=== PATIENT | female | born 1975 | race Caucasian/White ===

== ENCOUNTER 2023-04-12 23:28 | Observation (INO) | payer BC, SELFPAY ==
--- NOTE | ~2023-04-12 | MR_ITS ---
EXAMINATION: MR brain/brain stem wo/w con DATE: 04/13/2023 11:02 INDICATION: Seizure TECHNIQUE: Magnetic resonance imaging (MRI) of the brain and brainstem was performed without and with 14 mL Multihance intravenous contrast. Sequences included sagittal and axial T1-weighted SE, axial d iffusion-weighted FS SE, axial 3D SWAN, axial T2-weighted FLAIR Propeller, axial T2-weighted Propelle r, coronal T2-weighted FLAIR, and coronal T1-weighted 3D FSPGR. Postcontrast axial T1-weighted SE was obtained. Apparent diffusion coefficient (ADC) maps were created. COMPARISON: Head CT dated 04/13/2023 FINDINGS: There are no areas of restricted diffusion to suggest acute infarction. No intracranial hemorrhage or abnormal intracranial mass lesion. There are no intraparenchymal signal abnormalities seen on the ot her pulse sequences. The ventricles are symmetric and normal in size. The hippocampi are normal and s ymmetric. No irwin matter heterotopias or other neuronal migrational abnormalities. There are no abnor mal extra-axial fluid collections. Flow voids are seen in the cerebral arteries on the T2-weighted se quences consistent with their expected patency. Visualized orbits and soft tissues are unremarkable. There are no areas of abnormal enhancement on the post contrast images. IMPRESSION: 1. Normal brain MRI. Reviewed, dictated and finalized at location A. [employer] IMPRESSION: 1. Normal brain MRI.
--- NOTE | ~2023-04-12 | CT_ITS ---
Non-contrast Head CT History: Seizure Technique: Axial non-contrast imaging of the brain was performed. Dose reduction technique was used on this scan by utilizing automated exposure control and iterative reconstruction technique. The dose -length product (DLP) was 983.67 mGy-cm. Findings: There is no evidence of intracranial hemorrhage, mass lesion, or acute infarct. Brain par enchyma appears normal. The ventricles and subarachnoid spaces are normal in size. The calvarium ap pears normal. The visualized paranasal sinuses and mastoid air cells are clear. Impression: No significant abnormality seen. Reviewed, dictated and finalized at location . [employer]IST Impression: No significant abnormality seen.
[2023-04-12 23:29] VITALS: BP 142/88; PULSE 97; RESP 20; TEMP 36.9; O2SAT 99
[2023-04-12 23:38] VITALS: PULSE 95; O2SAT 100
[2023-04-12 23:46] VITALS: BP 131/76; PULSE 102; RESP 18; TEMP 36.8; O2SAT 98
--- NOTE | 2023-04-12 23:46 | ECG_ITS ---
Measurements Intervals Rose Rate: 97 P: 42 DE: 146 QRS: 14 QRSD: 107 T: 29 QT: 361 QTc: 461 Interpretive Statements SINUS RHYTHM POSSIBLE LEFT ATRIAL ENLARGEMENT [-0.1mV P-WAVE IN V1/V2] NO PREVIOUS ECG AVAILABLE FOR COMPARISON Electronically Signed On 04-13-2023 15:22:27 POTLINE MONITOR by Miah Domínguez M.D.
[2023-04-13] VITALS (14 sets, daily range): BP systolic 117–144; BP diastolic 69–92; PULSE 78–122; RESP 16–22; TEMP 36.4–36.9; O2SAT 97–100
[2023-04-13 00:10] LABS: Eosinophils Absolute Auto 0.1 K/mm3 (0-0.3); Eosinophils Percent Auto 1.2 % (0-4.4); Hematocrit 38.2 % (37.0-47.0); Hemoglobin 12.9 g/dL (12.0-15.0); Immature Granulocyte Absolute 0.03 K/mm3 (0.00-0.031); Immature Granulocyte Percent A 0.7 % (0-0.5); Immature Platelet Fraction Pct 3.9 % (0.9-11.2); Lymphocytes Absolute Auto 0.72 K/mm3 (0.9-3.2); Lymphocytes Percent Auto 17.1 % (18.3-44.2); Mean Corpuscular HGB Conc 33.8 g/dl (32-36); Mean Corpuscular Hemoglobin 34.1 pg (26-34); Mean Corpuscular Volume 101.1 fl (80-100); Mean Platelet Volume 9.7 fl (7.4-10.4); Monocytes Absolute Auto 0.4 K/mm3 (0.1-0.6); Neutrophils Absolute Auto 2.9 K/mm3 (1.3-6.7); Platelet Count Result 109 k/mm3 (150-375); Red Blood Count 3.78 M/mm3 (4.2-5.4); Red Cell Distribution Width 12.5 % (11.5-14.5); White Blood Count 4.2 K/mm3 (4.5-10.0)
[2023-04-13 00:21] LABS: Alanine Aminotransferase 127 U/L (6-35); Albumin Level 4.8 g/dL (3.5-5.1); Alkaline Phosphatase 52 U/L (38-126); Anion Gap 8 mmol/L (8-16); Aspartate Amino Transferase 123 U/L (14-36); Blood Urea Nitrogen 16 mg/dL (7-17); Calcium 9.5 mg/dL (8.4-10.2); Carbon Dioxide 27 mmol/L (22-30); Chloride 96 mmol/L (98-107); Estimated CRCL calculation 130 ml/min; Estimated Glomerular Filt Rate > 60; Glucose 128 mg/dL (65-110); Potassium 3.7 mmol/L (3.4-5.0); Sodium 131 mmol/L (137-145)
--- NOTE | 2023-04-13 00:32 | ED.GENADULT ---
HPI - General Adult General Chief complaint: Seizure Stated complaint: NEW ONSET SZ Time Seen by Provider: 04/13/23 00:31 History of Present Illness HPI narrative: 47-year-old female presented to the emergency department for evaluation for seizure-like activity. Patient was at work when she fell to the ground and had seizure-like activity. Patient was transported to the emergency department by EMS. While in the emergency department patient had a 2nd seizure. Related Data Home Medications Medication Instructions Recorded Confirmed alprazolam 0.25 mg tablet 0.25 mg PO Q8H PRN Anxiety 04/13/23 04/13/23 escitalopram oxalate 10 mg tablet 10 mg PO DAILY 04/13/23 04/13/23 metoprolol tartrate 50 mg tablet 50 mg PO HS 04/13/23 04/13/23 metoprolol tartrate 75 mg tablet 75 mg PO QAM 04/13/23 04/13/23 omeprazole 40 mg capsule,delayed 40 mg PO DAILY 04/13/23 04/13/23 release trazodone 100 mg tablet 100 mg PO HS 04/13/23 04/13/23 Allergies Allergy/AdvReac Type Severity Reaction Status Date / Time No Known Allergies Allergy Verified 04/12/23 23:39 Review of Systems Review of Systems: All systems reviewed & are unremarkable except as noted in HPI and below PMFSH Family History Family History (Updated 04/13/23 @ 04:09 by Vita Macdonald RN) Mother Acute myocardial infarction Father Diabetes mellitus Hypertension Daughter Migraine Social History Social History Smoking packs per day: 0.5 Smoking cigarettes per day: 10.0 Smoking status: Current every day smoker Tobacco type: cigarettes Alcohol intake: never Substance use: never Do You Feel Safe in your Home?: Yes Lack of Transportation: No Lack of Food: Never True Current Housing: I Have Housing Concerned About Future Housing: No Difficulty Paying Gas/Electric Bills: No Difficulty Paying for Meds: No Currently Unemployed: No Education: High School Diploma/GED Difficulty w/ Childcare or Family Care: No Spiritual care concerns: No Exam Narrative: APPEARANCE: Well appearing, no pain, no distress, well-nourished. HEAD: normocephalic, atraumatic. EYES: PERRLA/EOMI, conjunctivae clear. NOSE: Normal no drainage EARS:TMS clear with good light reflex. THROAT: Pharynx clear, no exudate. NECK: Supple. No adenopathy, no masses. RESPIRATORY: Airway patent, respirations nonlabored. Clear to auscultation bilaterally, no rales, rhonchi, wheezing. CARDIOVASCULAR: Regular rate and rhythm without murmurs rubs or gallops. ABDOMINAL: Soft, nontender, nondistended, normal bowel sounds MUSCULOSKELETAL: Moves all extremities. Strength/ROM intact, No edema, No calf tenderness. NEURO: Alert. Cranial nerves II through XII intact. grossly intact SKIN: Warm, dry. Normal Color Course Course Emergency Course: 47-year-old female presenting ED for evaluation after seizure-like activity. Head CT showed no acute intracranial abnormality. Patient did have a 2nd seizure in the emergency department was treated with Ativan. Patient was not started on antiepileptics in the emergency department. I discussed the case with the hospitalist and patient was accepted for admission. Vital Signs Vital signs: Vital Signs Temperature 98.4 F 04/12/23 23:29 Pulse Rate 97 04/12/23 23:29 Respiratory Rate 20 04/12/23 23:29 Blood Pressure 142/88 H 04/12/23 23:29 Pulse Oximetry 99 04/12/23 23:29 Oxygen Delivery Room Air 04/12/23 23:29 Temperature 98.2 F 04/13/23 04:10 Pulse Rate 102 H 04/13/23 04:10 Respiratory Rate 18 04/13/23 04:10 Blood Pressure 131/76 04/13/23 04:10 Pulse Oximetry 98 04/13/23 04:10 Oxygen Delivery Room Air 04/13/23 04:17 Medical Decision Making Differential Diagnosis Differential Diagnosis: Seizure, seizure-like activity, intracranial injury Vital Signs Vital Signs: Vital Signs Temperature 98.4 F 04/12/23 23:29 Pulse Rate 97 04/12/23 23:29 Respiratory Rate 20
--- NOTE | 2023-04-13 00:34 | PC.NURSE ---
This RN was in another pt room when visitor at beside in room H2 called out for help. Upon entering pt room pt was convulsing and foaming at the mouth. Pt was turned on her side and suctioned as this episode when on for approx x2 mins. EDP Dr. Barr at bedside during postictal period and VORB 2mg ativan. ALAINA Weaver administered ativan.
[2023-04-13 00:43] LABS: Ethanol < 10 mg/dL (<10)
[2023-04-13] MEDS: LORazepam INJ (*CRX) 2 MG/ML VIAL IV PUSH (00:47)
[2023-04-13 01:49] LABS: Influenza A QL RT-PCR Negative (Negative); Influenza B QL RT-PCR Negative (Negative); RSV RNA, RT-PCR Negative (Negative); SARS-CoV-2 RNA PCR Negative (Negative)
[2023-04-13 03:33] LABS: Barbiturate Screen Urine Negative (Negative); Benzodiazepines Screen Urine Positive (Negative)
[2023-04-13 03:55] LABS: Amphetamine Screen Urine Negative (Negative); Cocaine Screen Urine Negative (Negative); Methadone Screen Urine Negative (Negative); Opiate Screen Urine Negative (Negative); Phencyclidine Screen Urine Negative (Negative)
[2023-04-13 03:56] LABS: Cannabinoid Screen Urine Negative (Negative)
--- NOTE | 2023-04-13 04:00 | ADMGEN ---
This patient, Maria Eugenia Solares, was admitted to Medical Room 243-01. Patient/family oriented to hospital policies and general routines including ID bracelet, bed and alarms, visiting hours, pain management, procedures, bathroom and other care routines, personal items, smoking policy, room service/diet, and visiting hours. Information on how to activate the Rapid Response Team has been discussed. Patient/Family are encouraged to report perceived risks to care and to ask questions if they do not understand what they are told or what they should do.
--- NOTE | 2023-04-13 07:37 | PM.IMHP ---
H&P: HPI History of Present Illness Date/Time: 04/13/23 07:37 Chief Complaint: Seizure Narrative: ?47-year-old female with history of anxiety, hypertension, GERD, present ED with a chief complaint of seizure activity. Patient fell on the ground when patient was working and patient was noticed to have seizure activity. EMS called, and patient was brought to ED for evaluation treatment. Patient states she was confused when patient regained consciousness. Patient denies history of seizure. Patient also denied fever, chills, headache, photophobia, nausea vomiting dysuria recently. In the ED, patient had another episode of seizure. Upon arrival in the ED, patient was afebrile, blood pressure stable, pulse ox 98 on room air, labs showed hyponatremia sodium 131, otherwise unremarkable. CT of head shows no acute intracranial issues no hydrocephalus mass effect herniation. In the ED, patient received or the pain to mg IV push once. Brain MRI is pending. We admit patient for further evaluation and treatment. Review of Systems Review of Systems: ROS negative except above PMFSH Family History Family History Mother Acute myocardial infarction Father Diabetes mellitus Hypertension Daughter Migraine Social History Social History Smoking packs per day: 0.5 Smoking cigarettes per day: 10.0 Smoking status: Current every day smoker Tobacco type: cigarettes Alcohol intake: never Substance use: never Do You Feel Safe in your Home?: Yes Lack of Transportation: No Lack of Food: Never True Current Housing: I Have Housing Concerned About Future Housing: No Difficulty Paying Gas/Electric Bills: No Difficulty Paying for Meds: No Currently Unemployed: No Education: High School Diploma/GED Difficulty w/ Childcare or Family Care: No Spiritual care concerns: No Meds Home Medications and Allergies Home Medications Medication Instructions Recorded Confirmed Type alprazolam 0.25 mg tablet 0.25 mg PO Q8H PRN Anxiety 04/13/23 04/13/23 History escitalopram oxalate 10 mg tablet 10 mg PO DAILY 04/13/23 04/13/23 History metoprolol tartrate 50 mg tablet 50 mg PO HS 04/13/23 04/13/23 History metoprolol tartrate 75 mg tablet 75 mg PO QAM 04/13/23 04/13/23 History omeprazole 40 mg capsule,delayed 40 mg PO DAILY 04/13/23 04/13/23 History release trazodone 100 mg tablet 100 mg PO HS 04/13/23 04/13/23 History Allergies Allergy/AdvReac Type Severity Reaction Status Date / Time No Known Allergies Allergy Verified 04/12/23 23:39 Vital Signs Vital Signs - 24 hr 04/12/23 23:29 04/12/23 23:38 04/12/23 23:38 Temperature 98.4 F Pulse Rate 97 95 Respiratory Rate 20 Blood Pressure 142/88 H Pulse Oximetry 99 100 Oxygen Delivery Room Air Room Air 04/13/23 00:49 04/13/23 03:07 04/13/23 03:33 Temperature Pulse Rate 99 101 H 90 Respiratory Rate 20 22 H 20 Blood Pressure 142/92 H 132/76 133/77 Pulse Oximetry 98 97 97 Oxygen Delivery 04/13/23 04:17 04/12/23 23:46 04/13/23 04:10 Temperature 98.2 F 98.2 F Pulse Rate 102 H 102 H Respiratory Rate 18 18 Blood Pressure 131/76 131/76 Pulse Oximetry 98 98 Oxygen Delivery Room Air 04/13/23 04:09 04/13/23 04:09 Temperature 98.2 F 98.2 F Pulse Rate 102 H 122 H Respiratory Rate 18 18 Blood Pressure 144/80 H 132/91 H Pulse Oximetry 100 100 Oxygen Delivery Exam Narrative: GENERAL: Pleasant, in no acute distress. Well-nourished. - EYES: EOMI. Anicteric. - HENT: Moist mucous membranes. - LUNGS: Clear to auscultation bilaterally, no wheezing, rhonchi, or rales. - CARDIOVASCULAR: Regular rate and rhythm. No murmur. No JVD. - ABDOMEN: Soft, non-tender and non-distended. No palpable masses. - EXTREMITIES: No edema. Peripheral pulses 2+. Non-tender. - NEUROLOGIC: No focal neurological deficits. CN II-XII grossly i
[2023-04-13] MEDS: levETIRAcetam 500MG/NACL 100ML 500 MG/100 ML BAG 400 MG IVPB ×2 (09:03→22:07)
[2023-04-13] MEDS: METOPROLOL TARTRATE 25 MG TABLET 75 MG PO (09:03)
[2023-04-13] MEDS: SODIUM CHLORIDE 0.9% IV 1,000 ML 100 ML IV CONT ×2 (09:03→22:07)
[2023-04-13] MEDS: PANTOPRAZOLE 40 MG TABLET PO ×2 (09:03→16:53)
--- NOTE | 2023-04-13 11:40 | WPDNEURCNPN ---
Assessment and Plan Assessment and plan (1) Anxiety: Code(s): F41.9 - Anxiety disorder, unspecified Status: Acute (2) Seizures: Code(s): R56.9 - Unspecified convulsions Status: Acute Plan 1st episode of seizure with no previous history of febrile seizure or any other seizure will obtain the MRI of the brain and EEG while she is in the hospital with seizure precautions and further adjustment will be made accordingly. Consult date: 04/13/23 HPI: Maria Eugenia Solares is a 47 year old female Admitted to the hospital through the emergency room for the complaint of seizure-like activity, patient was reportedly at work when she fell to the ground and had a seizure-like activity then he was transported to the emergency room EMS fair she had an another seizure. Patient has been taking alprazolam 0.25mg Q 8hours p.r.n., he citalopram 10mg daily, metoprolol 50mg at night, trazodone 100mg at night, she does have ongoing history of currently everyday smoker but no alcohol consumption and initial exam in the emergency room was nonfocal With normal vital signs, routine lab studies were normal including the screening for influenza a influenza B RSV and SARs COVID, CT scan of the head was negative. This stage she gives no history of nausea vomiting blood in stool black stool no history of cough shortness of breath pain in chest or abdomen history of hematuria or dysuria. [facility] Family History Family History Mother Acute myocardial infarction Father Diabetes mellitus Hypertension Daughter Migraine Social History Social History Smoking packs per day: 0.5 Smoking cigarettes per day: 10.0 Smoking status: Current every day smoker Tobacco type: cigarettes Alcohol intake: never Substance use: never Do You Feel Safe in your Home?: Yes Lack of Transportation: No Lack of Food: Never True Current Housing: I Have Housing Concerned About Future Housing: No Difficulty Paying Gas/Electric Bills: No Difficulty Paying for Meds: No Currently Unemployed: No Education: High School Diploma/GED Difficulty w/ Childcare or Family Care: No Spiritual care concerns: No Meds Home Medications and Allergies Home Medications Medication Instructions Recorded Confirmed Type alprazolam 0.25 mg tablet 0.25 mg PO Q8H PRN Anxiety 04/13/23 04/13/23 History escitalopram oxalate 10 mg tablet 10 mg PO DAILY 04/13/23 04/13/23 History metoprolol tartrate 50 mg tablet 50 mg PO HS 04/13/23 04/13/23 History metoprolol tartrate 75 mg tablet 75 mg PO QAM 04/13/23 04/13/23 History omeprazole 40 mg capsule,delayed 40 mg PO DAILY 04/13/23 04/13/23 History release trazodone 100 mg tablet 100 mg PO HS 04/13/23 04/13/23 History Allergies Allergy/AdvReac Type Severity Reaction Status Date / Time No Known Allergies Allergy Verified 04/12/23 23:39 Vital Signs Vital Signs - 24 hr 04/12/23 23:29 04/12/23 23:38 04/12/23 23:38 Temperature 36.9 C Pulse Rate 97 95 Respiratory Rate 20 Blood Pressure 142/88 H Pulse Oximetry 99 100 Oxygen Delivery Room Air Room Air 04/13/23 00:49 04/13/23 03:07 04/13/23 03:33 Temperature Pulse Rate 99 101 H 90 Respiratory Rate 20 22 H 20 Blood Pressure 142/92 H 132/76 133/77 Pulse Oximetry 98 97 97 Oxygen Delivery 04/13/23 04:17 04/12/23 23:46 04/13/23 04:10 Temperature 36.8 C 36.8 C Pulse Rate 102 H 102 H Respiratory Rate 18 18 Blood Pressure 131/76 131/76 Pulse Oximetry 98 98 Oxygen Delivery Room Air 04/13/23 04:09 04/13/23 04:09 04/13/23 09:03 Temperature 36.8 C 36.8 C Pulse Rate 102 H 122 H 94 Respiratory Rate 18 18 Blood Pressure 144/80 H 132/91 H Pulse Oximetry 100 100 Oxygen Delivery 04/13/23 08:00 04/13/23 11:37 Temperature 36.8 C 36.9 C Pulse Rate 94 79 Respiratory Rate 16 16 Blood Pressure 126/78 117/69 Pulse Oximetr
[2023-04-13] MEDS: ACETAMINOPHEN 325 MG TABLET 650 MG PO ×2 (15:07→21:20)
[2023-04-13] MEDS: ALPRAZolam (*CRX) 0.25 MG TABLET PO (15:07)
[2023-04-13] MEDS: METOPROLOL TARTRATE 50 MG TAB PO (21:21)
[2023-04-14] VITALS: PULSE 88
[2023-04-14 04:00] VITALS: PULSE 82
[2023-04-14 04:28] VITALS: BP 140/85; PULSE 88; RESP 18; TEMP 36.7; O2SAT 98
[2023-04-14 07:34] VITALS: O2SAT 97
[2023-04-14 09:02] VITALS: PULSE 97
[2023-04-14] MEDS: levETIRAcetam 500MG/NACL 100ML 500 MG/100 ML BAG 400 MG IVPB (09:02)
[2023-04-14] MEDS: METOPROLOL TARTRATE 25 MG TABLET 75 MG PO (09:02)
[2023-04-14] MEDS: PANTOPRAZOLE 40 MG TABLET PO (09:02)
[2023-04-14] MEDS: SODIUM CHLORIDE 0.9% IV 1,000 ML 100 ML IV CONT (09:02)
--- NOTE | 2023-04-14 09:04 | PM.IMPN ---
Progress Note: A&P Assessment and Plan (1) Epileptic seizure: Code(s): G40.909 - Epilepsy, unspecified, not intractable, without status epilepticus Status: Acute (2) GERD (gastroesophageal reflux disease): Code(s): K21.9 - Gastro-esophageal reflux disease without esophagitis Status: Acute (3) Essential hypertension: Code(s): I10 - Essential (primary) hypertension Status: Acute (4) Anxiety: Code(s): F41.9 - Anxiety disorder, unspecified Status: Acute (5) Hyponatremia: Code(s): E87.1 - Hypo-osmolality and hyponatremia Status: Acute Plan Epilepsy Unclear etiologies, patient had 2 episode seizure in 24 hours Patient received rhythm pain in the ED, Patient is afebrile, no obvious sign of infection CT of head shows no acute intracranial issues MRI pending Place patient on telemetry monitoring Order EEG, normal EEG per neurologist report Keppra 500 mg q.12 hours IV Seizure precaution Consult neurologist Appreciate neurologist consultation, neurologist recommend to discharge patient home with oral Keppra 500 mg b.i.d. p.o. Hyponatremia Sodium 131 Likely secondary to inadequate electrolyte intake and side effect of trazodone Start normal saline 100 mL/hour Follow-up BMP Na 134 Hypertension Continue metoprolol at home dose GERD Continue omeprazole 20 mg daily p.o. Anxiety Hold Lexapro and trazodone because of side effect of seizure, may resume when per evaluation by a neurologist and PCP in office Patient will be discharged home today per neurologist recommendation Subjective Date/time seen: 04/14/23 09:04 Interval history: I saw and examed patient, patient has no seizure overnight, patient is afebrile, blood pressure stable, headache is better controlled, denies vision change, focal weakness, Exam Narrative: GENERAL: Pleasant, in no acute distress. Well-nourished. - EYES: EOMI. Anicteric. - HENT: Moist mucous membranes. - LUNGS: Clear to auscultation bilaterally, no wheezing, rhonchi, or rales. - CARDIOVASCULAR: Regular rate and rhythm. No murmur. No JVD. - ABDOMEN: Soft, non-tender and non-distended. No palpable masses. - EXTREMITIES: No edema. Peripheral pulses 2+. Non-tender. - NEUROLOGIC: No focal neurological deficits. CN II-XII grossly intact. - PSYCHIATRIC: Awake, Alert and oriented x 3. Appropriate mood and affect. - SKIN: No rashes or lesions. Warm. - LYMPH: No cervical lymphadenopathy.. Objective Data Vital Signs Vital Signs: Vital Signs - 24 hr 04/13/23 11:37 04/13/23 14:33 04/13/23 12:00 Temperature 98.5 F 97.5 F L Pulse Rate 79 78 81 Respiratory Rate 16 18 Blood Pressure 117/69 142/90 H Pulse Oximetry 99 98 Oxygen Delivery 04/13/23 16:00 04/13/23 20:09 04/13/23 21:21 Temperature 98.3 F Pulse Rate 84 86 85 Respiratory Rate 18 Blood Pressure 143/83 H Pulse Oximetry 99 Oxygen Delivery 04/13/23 22:00 04/13/23 22:00 04/14/23 00:00 Temperature Pulse Rate 81 88 Respiratory Rate Blood Pressure Pulse Oximetry Oxygen Delivery Room Air 04/14/23 04:00 04/14/23 04:28 04/14/23 09:02 Temperature 98.1 F Pulse Rate 82 88 97 Respiratory Rate 18 Blood Pressure 140/85 Pulse Oximetry 98 Oxygen Delivery Intake/Output Intake/Output: Intake & Output 04/11/23 04/12/23 04/13/23 04/14/23 23:59 23:59 23:59 23:59 Intake Total 2530 1590 Output Total 450 Balance 2080 1590 Meds/Results Medications: Active Medications Generic Name Dose Route Start Last Admin Trade Name Freq PRN Reason Stop Dose Admin Acetaminophen 650 mg 04/13/23 14:35 04/13/23 21:20 Acetaminophen 325 Mg Tablet PO 650 mg Q6H PRN Administration Mild Pain (1-3) or Fever Alprazolam 0.25 mg 04/13/23 07:41 04/13/23 15:07 Alprazolam (*Crx) 0.25 Mg Tablet PO 0.25 mg Q8H PRN Administration Anxiety Levetiracetam 500 mg in 100 mls @ 400
[2023-04-14 09:33] LABS: Hematocrit 36.4 % (37.0-47.0); Hemoglobin 12.2 g/dL (12.0-15.0); Immature Platelet Fraction Pct 4.7 % (0.9-11.2); Mean Corpuscular HGB Conc 33.5 g/dl (32-36); Mean Corpuscular Hemoglobin 33.7 pg (26-34); Mean Corpuscular Volume 100.6 fl (80-100); Mean Platelet Volume 9.8 fl (7.4-10.4); Platelet Count Result 111 k/mm3 (150-375); Red Blood Count 3.62 M/mm3 (4.2-5.4); Red Cell Distribution Width 12.2 % (11.5-14.5); White Blood Count 5.8 K/mm3 (4.5-10.0)
[2023-04-14 09:50] LABS: Anion Gap 8 mmol/L (8-16); Blood Urea Nitrogen 7 mg/dL (7-17); Calcium 8.8 mg/dL (8.4-10.2); Carbon Dioxide 27 mmol/L (22-30); Chloride 99 mmol/L (98-107); Estimated CRCL calculation 165 ml/min; Estimated Glomerular Filt Rate > 60; Glucose 112 mg/dL (65-110); Potassium 3.1 mmol/L (3.4-5.0); Sodium 134 mmol/L (137-145)
--- NOTE | 2023-04-14 10:06 | WPDNEUROLOGY ---
Neurology EEG Report General Information Date of Study: 04/14/23 TEST EEG DIAGNOSIS seizures CONDITION OF RECORDING awake drowsy and sleep EEG NUMBER [id number] CLINICAL HISTORY patient was brought in to hospital for 2 seizures like events. Does not recall anything that happened. No previous history of seizures. EEG DESCRIPTION Basic resting occipital frequency consists of low-voltage 11 to 13 hertz per 2nd alpha admixed with low-voltage 15 to 21 hertz per 2nd beta with good jose posterior gradient. Bilateral symmetrical sleep activity is noted during sleep. Hyperventilation not done. Photic stimulation not done. Non paroxysmal. Nonfocal. Nonlateralizing. IMPRESSION No significant abnormalities noted. Clinical correlation recommended
--- NOTE | 2023-04-14 12:11 | WPDNEUROPN ---
Subjective Date/time seen: 04/14/23 12:11 Interval history: 47 years old admitted to the hospital for the 1st episode of seizure with no previous history of seizure disorder but ongoing history of anxiety disorder and taking multiple medications particularly alprazolam 0.25mg q.8 hours E citalopram 10mg daily trazodone 100mg at night in addition to the history of no alcohol consumption, evaluation included MRI of the brain which is normal and so as the EEG. Advised her to take Keppra 500mg p.o. b.i.d. but in addition the possibility of the all the medications which can lower the seizure threshold including the possibility of drugs and alcohol and anxiolytic medications overuse. At this stage she can be discharged on Keppra 500mg p.o. b.i.d. the recommendation not to drive for the next 3 months and follow up with the physician. Objective Data Vital Signs Vital Signs: Vital Signs - 24 hr 04/13/23 14:33 04/13/23 16:00 04/13/23 20:09 Temperature 36.4 C L 36.8 C Pulse Rate 78 84 86 Respiratory Rate 18 18 Blood Pressure 142/90 H 143/83 H Pulse Oximetry 98 99 Oxygen Delivery 04/13/23 21:21 04/13/23 22:00 04/13/23 22:00 Temperature Pulse Rate 85 81 Respiratory Rate Blood Pressure Pulse Oximetry Oxygen Delivery Room Air 04/14/23 00:00 04/14/23 04:00 04/14/23 04:28 Temperature 36.7 C Pulse Rate 88 82 88 Respiratory Rate 18 Blood Pressure 140/85 Pulse Oximetry 98 Oxygen Delivery 04/14/23 09:02 04/14/23 07:34 04/14/23 08:00 Temperature Pulse Rate 97 Respiratory Rate Blood Pressure Pulse Oximetry 97 Oxygen Delivery Room Air Room Air Intake/Output Intake/Output: Intake & Output 04/11/23 04/12/23 04/13/23 04/14/23 23:59 23:59 23:59 23:59 Intake Total 2530 1830 Output Total 450 Balance 2080 1830 Meds/Results Medications: Active Medications Generic Name Dose Route Start Last Admin Trade Name Freq PRN Reason Stop Dose Admin Acetaminophen 650 mg 04/13/23 14:35 04/13/23 21:20 Acetaminophen 325 Mg Tablet PO 650 mg Q6H PRN Administration Mild Pain (1-3) or Fever Alprazolam 0.25 mg 04/13/23 07:41 04/13/23 15:07 Alprazolam (*Crx) 0.25 Mg Tablet PO 0.25 mg Q8H PRN Administration Anxiety Levetiracetam 500 mg in 100 mls @ 400 mls/hr 04/13/23 09:00 04/14/23 09:02 Keppra Iv IVPB 400 mls/hr Q12HR MARBELLA Administration Sodium Chloride 1,000 mls @ 100 mls/hr 04/13/23 08:00 04/14/23 09:02 Normal Saline Iv IV CONT 100 mls/hr .Q10H MARBELLA Administration Lorazepam 1 mg 04/13/23 03:35 Lorazepam Inj (*Crx) 2 Mg/Ml Vial IV PUSH Q8H PRN Seizures Metoprolol Tartrate 50 mg 04/13/23 21:00 04/13/23 21:21 Metoprolol Tartrate 50 Mg Tab PO 50 mg HS MARBELLA Administration Metoprolol Tartrate 75 mg 04/13/23 09:00 04/14/23 09:02 Metoprolol Tartrate 25 Mg Tablet PO 75 mg QAM MARBELLA Administration Pantoprazole Sodium 40 mg 04/13/23 09:00 04/14/23 09:02 Pantoprazole 40 Mg Tablet PO 40 mg BID MARBELLA Administration Radiology Results: ITS Impressions Head CT 04/13/23 05:37 Impression: No significant abnormality seen. Brain MRI 04/13/23 11:50 IMPRESSION: 1. Normal brain MRI. Labs Labs: Laboratory Results - last 24 hr 04/14/23 09:20 WBC 5.8 RBC 3.62 L Hgb 12.2 Hct 36.4 L MCV 100.6 H MCH 33.7 MCHC 33.5 RDW 12.2 Plt Count 111 L MPV 9.8 % Immature Plt Fraction 4.7 Sodium 134 L Potassium 3.1 L Chloride 99 Carbon Dioxide 27 Anion Gap 8 BUN 7 D Creatinine 0.30 L Estim Creat Clear Calc 165 Estimated GFR > 60 Glucose 112 H Calcium 8.8 Amg Follow-up Billing Hospital Follow-up Hospital Follow-up: [address] [facility] Mod
--- NOTE | 2023-04-14 13:23 | PM.DS ---
DS: Admitting Diagnosis Discharge Date 04/14/23 Admitting Diagnosis (1) Epileptic seizure: ?Code(s): G40.909 - Epilepsy, unspecified, not intractable, without status epilepticus ?Status:?Acute (2) GERD (gastroesophageal reflux disease): ?Code(s): K21.9 - Gastro-esophageal reflux disease without esophagitis ?Status:?Acute (3) Essential hypertension: ?Code(s): I10 - Essential (primary) hypertension ?Status:?Acute (4) Anxiety: ?Code(s): F41.9 - Anxiety disorder, unspecified ?Status:?Acute (5) Hyponatremia: ?Code(s): E87.1 - Hypo-osmolality and hyponatremia ?Status:?Acute DS: Discharge Diagnosis Discharge Diagnosis (1) Epileptic seizure: Code(s): G40.909 - Epilepsy, unspecified, not intractable, without status epilepticus Status: Acute (2) GERD (gastroesophageal reflux disease): Code(s): K21.9 - Gastro-esophageal reflux disease without esophagitis Status: Acute (3) Essential hypertension: Code(s): I10 - Essential (primary) hypertension Status: Acute (4) Anxiety: Code(s): F41.9 - Anxiety disorder, unspecified Status: Acute (5) Hyponatremia: Code(s): E87.1 - Hypo-osmolality and hyponatremia Status: Acute DS: Summary Hospital Course Hospital Course: ?47-year-old female with history of anxiety, hypertension, GERD, present ED with a chief complaint of seizure activity.? Patient fell on the ground when patient was working and patient was noticed to have seizure activity.? EMS called, and patient was brought to ED for evaluation treatment.? Patient states she was confused when patient regained consciousness.? Patient denies history of seizure.? Patient also denied fever, chills, headache, photophobia, nausea vomiting dysuria recently.? In the ED, patient had another episode of seizure. ? Upon arrival in the ED, patient was afebrile, blood pressure stable, pulse ox 98 on room air, labs showed hyponatremia sodium 131, otherwise unremarkable.? CT of head shows no acute intracranial issues no hydrocephalus mass effect herniation.? In the ED, patient received or the pain to mg IV push once.? Brain MRI is pending.? We admit patient for further evaluation and treatment. The following med issues have been addressed during hospitalization Epilepsy Unclear etiologies, patient had 2 episode seizure in 24 hours Patient received rhythm pain in the ED, Patient is afebrile, no obvious sign of infection CT of head shows no acute intracranial issues MRI pending Place patient on telemetry monitoring Order EEG, normal EEG per neurologist report Keppra 500 mg q.12 hours IV Seizure precaution Consult neurologist Appreciate neurologist consultation, neurologist recommend to discharge patient home with oral Keppra 500 mg b.i.d. p.o. Hyponatremia Sodium 131 Likely secondary to inadequate electrolyte intake and side effect of trazodone Start normal saline 100 mL/hour Follow-up BMP Na 134 Hypertension Continue metoprolol at home dose GERD Continue omeprazole 20 mg daily p.o. Anxiety Hold Lexapro and trazodone because of side effect of seizure, may resume when per evaluation by a neurologist and PCP in office Patient will be discharged home today per neurologist recommendation Time Spent with Patient Time attestation: Total time spent providing and/or coordinating discharge services: Exam Narrative: GENERAL: Pleasant, in no acute distress. Well-nourished. - EYES: EOMI. Anicteric. - HENT: Moist mucous membranes. - LUNGS: Clear to auscultation bilaterally, no wheezing, rhonchi, or rales. - CARDIOVASCULAR: Regular rate and rhythm. No murmur. No JVD. - ABDOMEN: Soft, non-tender and non-distended. No palpable masses. - EXTREMITIES: No edema. Peripheral pulses 2+. Non-tender. - NEUROLOGIC: No focal neurological deficits. CN II-XII grossly intact. - PSYCHIATRIC: Awake, Alert and oriented x 3. Appr
== END 2023-04-14 14:10 | disposition home or self-care (01) ==
LOC: ANHED 04-13 03:06 → ANH2MED 04-13 03:39
PROVIDERS: Admitting Provider Internal Medicine; Emergency Provider Emergency Medicine; Visit Provider Hospitalist
DX: G40.909 Epilepsy, unspecified, not intractable, without status epilepticus (principal); F41.9 Anxiety disorder, unspecified; K21.9 Gastro-esophageal reflux disease without esophagitis; I10 Essential (primary) hypertension; E87.1 Hypo-osmolality and hyponatremia; F17.210 Nicotine dependence, cigarettes, uncomplicated; Z82.49 Family history of ischemic heart disease and other diseases of the circulatory system; Z20.822 Contact with and (suspected) exposure to COVID-19
CPT/HCPCS: 36415; 70450; 70553; 80048; 80053; 80307; 85025; 85027; 85055; 87637; 93005; 95816; 96361; 96374; 96375; 96376; 99285; A9270; A9577; G0378; J1953; J2060; J7030

== ENCOUNTER 2023-11-10 | Observation (INO) | payer BC, SELFPAY ==
[2023-11-09 23:58] VITALS: PULSE 109; RESP 15; O2SAT 100
[2023-11-10] VITALS (36 sets, daily range): BP systolic 115–148; BP diastolic 60–90; PULSE 80–130; RESP 15–24; TEMP 36.6–37.4; O2SAT 94–100; BMI 25.0
--- NOTE | ~2023-11-10 | CT_ITS ---
Non-contrast Head CT History: Seizure, status post fall COMPARISON: 04/13/2023 Technique: Axial non-contrast imaging of the brain was performed. Dose reduction technique was used on this scan by utilizing automated exposure control and iterative reconstruction technique. The dose -length product (DLP) was 756.67 mGy-cm. Findings: There is no evidence of intracranial hemorrhage, mass lesion, or acute infarct. Brain par enchyma appears normal. The ventricles and subarachnoid spaces are normal in size. The calvarium ap pears normal. The visualized paranasal sinuses and mastoid air cells are clear. There is extensive h ematoma along the high left frontoparietal scalp. Impression: No intracranial abnormality seen. Extensive hematoma/soft tissue swelling along the high left frontoparietal scalp. Reviewed, dictated and finalized at [facility]. Impression: No intracranial abnormality seen. Extensive hematoma/soft tissue swelling along the high left frontoparietal scal p.
--- NOTE | 2023-11-10 00:05 | ECG_ITS ---
Test Date: 2023-11-10 00:13:40 Measurements Intervals [place] Rate: 107 P: 20 AR: 142 QRS: 43 QRSD: 94 T: 21 QT: 339 QTc: 454 Interpretive Statements SINUS TACHYCARDIA POSSIBLE LEFT ATRIAL ENLARGEMENT BASELINE ARTIFACT- I, II, III, AVR, AVL, AVF, V1-V6 ABNORMAL ECG No previous ECG available for comparison Electronically Signed On 11-10-2023 06:32:30 CDT by Yung Aaron D.O.
[2023-11-10 00:32] LABS: Basophils Percent Auto 0.5 % (0.2-1.2); Eosinophils Percent Auto 0.5 % (0-4.4); Immature Granulocyte Absolute 0.03 K/mm3 (0.00-0.031); Immature Granulocyte Percent A 0.5 % (0-0.5); Lymphocytes Absolute Auto 0.75 K/mm3 (0.9-3.2); Lymphocytes Percent Auto 13.1 % (18.3-44.2); Mean Corpuscular HGB Conc 34.3 g/dl (32-36); Mean Corpuscular Hemoglobin 34.8 pg (26-34); Mean Corpuscular Volume 101.4 fl (80-100); Mean Platelet Volume 9.9 fl (7.4-10.4); Monocytes Absolute Auto 0.6 K/mm3 (0.1-0.6); Neutrophils Absolute Auto 4.3 K/mm3 (1.3-6.7); Neutrophils Percent Auto 75.4 % (45.5-73.1); Platelet Count Result 108 k/mm3 (150-375); Red Blood Count 3.45 M/mm3 (4.2-5.4); Red Cell Distribution Width 12.3 % (11.5-14.5); White Blood Count 5.7 K/mm3 (4.5-10.0)
[2023-11-10] MEDS: levETIRAcetam 1500MG/NACL100ML 1,500 MG/100 ML BAG 400 MG IVPB (00:32)
[2023-11-10] MEDS: LACTATED RINGERS 1,000 ML 999 ML IV CONT (00:33)
[2023-11-10 00:39] LABS: Lactic Acid Reflex 2.5 mmol/L (0.7-2.0)
--- NOTE | 2023-11-10 00:39 | ED.SEIZURE ---
HPI - Seizure General Chief Complaint: Seizure Stated Complaint: SEIZURE Time Seen by Provider: 11/10/23 00:01 History of Present Illness HPI Narrative: Patient with history of possible seizures diagnosed this year with unremarkable EEG/MRI currently on Keppra 1000 mg twice a day with does just increased today presents after witnessed seizure by her co-worker where she fell to the ground. Seizure History: Yes (03/2023) Related Data Home Medications Medication Instructions Recorded Confirmed alprazolam 0.25 mg tablet 0.25 mg PO Q8H PRN Anxiety 04/13/23 04/13/23 metoprolol tartrate 50 mg tablet 50 mg PO HS 04/13/23 04/13/23 metoprolol tartrate 75 mg tablet 75 mg PO QAM 04/13/23 04/13/23 omeprazole 40 mg capsule,delayed 40 mg PO DAILY 04/13/23 04/13/23 release Allergies Allergy/AdvReac Type Severity Reaction Status Date / Time No Known Allergies Allergy Verified 04/12/23 23:39 Review of Systems Review of Systems: All systems reviewed & are unremarkable except as noted in HPI and below PMFSH Family History Family History Mother Acute myocardial infarction Father Diabetes mellitus Hypertension Daughter Migraine Social History Social History Smoking packs per day: 0.5 Smoking cigarettes per day: 10.0 Smoking status: Current every day smoker Tobacco type: cigarettes Alcohol intake: never Substance use: never Do You Feel Safe in your Home?: Yes Lack of Transportation: No Lack of Food: Never True Current Housing: I Have Housing Concerned About Future Housing: No Difficulty Paying Gas/Electric Bills: No Difficulty Paying for Meds: No Currently Unemployed: No Education: High School Diploma/GED Difficulty w/ Childcare or Family Care: No Spiritual care concerns: No Exam Narrative: EXAMINATION OF ORGAN SYSTEMS/BODY AREAS: Constitutional: Vital signs per nursing GENERAL: Appears tired HEAD: Hematoma back of head EYES: EOMI, conjunctiva normal ENT: Hearing grossly intact LUNGS: Nonlabored breathing. HEART: [Regular rate and rhythm] ABD: [Soft], [nontender to palpation] EXT: Normal range of motion SKIN: Hematoma to the back of head NEURO: [Tired and slowly answering questions. No gross focal sensory or strength deficits.] PSYCH: Normal affect Course Vital Signs Vital signs: Vital Signs Pulse Rate 109 H 11/09/23 23:58 Respiratory Rate 15 11/09/23 23:58 Pulse Oximetry 100 11/09/23 23:58 Oxygen Delivery Room Air 11/09/23 23:58 Temperature 97.9 F 11/10/23 00:06 Pulse Rate 101 H 11/10/23 00:05 Respiratory Rate 15 11/09/23 23:58 Blood Pressure 144/90 H 11/10/23 00:06 Pulse Oximetry 100 11/09/23 23:58 Oxygen Delivery Room Air 11/10/23 00:06 MDM - Seizure MDM Narrative Medical decision making narrative: 1) Differential diagnosis: Seizure, intracranial abnormality/bleed, syncope, panic attack 2) Comorbidities: Seizures, anxiety 3) External notes reviewed: Prior admission records, neurology notes 4) History sources independently obtained from: EMS 5) Discussion of management with: Neurology, hospitalist 6) Independent interpretation of: EKG shows sinus tachycardia rate 107, MI 142, QRS 94, QTC 454, normal axis, no ST elevation or depression 7) Diagnostic tests or therapies considered but not ordered: [] 8) Social determinants of health: [] 9) Shared decision makin-year-old female presenting with seizure-like activity, she is alert and oriented here with out any focal neurologic deficits, labs within acceptable limits other than very slightly elevated lactic acid which may be consistent with possible seizure. I did have discussion with the patient that she is already on seizure medications and has follow with Neurology at that she has been observed here for 2 hours without any further seizure-like activity I generall
[2023-11-10 00:40] LABS: Alanine Aminotransferase 73 U/L (6-35); Albumin Level 4.6 g/dL (3.5-5.1); Alkaline Phosphatase 49 U/L (38-126); Anion Gap 18 mmol/L (4-12); Aspartate Amino Transferase 98 U/L (14-36); Bilirubin,Total 1.3 mg/dL (0.2-1.3); Blood Urea Nitrogen 13 mg/dL (7-17); Calcium 9.4 mg/dL (8.4-10.2); Carbon Dioxide 21 mmol/L (22-30); Chloride 91 mmol/L (98-107); Estimated CRCL calculation 106 ml/min; Estimated Glomerular Filt Rate > 60; Glucose 130 mg/dL (65-110); Potassium 4.1 mmol/L (3.4-5.0); Sodium 130 mmol/L (137-145)
[2023-11-10] MEDS: LORazepam INJ (*CRX) 2 MG/ML VIAL IV PUSH (02:39)
--- NOTE | 2023-11-10 02:39 | PC.NURSE ---
Pt had an episode of shaking, wet the bed, and pulled out her iv. During the process Pt was able to follow commands to open her mouth to be suctioned during this time, and hold arm still so that we could give her im ativan.
--- NOTE | 2023-11-10 03:15 | PC.NURSE ---
bed linen change and pt cleaned up at this time.
[2023-11-10 03:29] LABS: Reflex Lactic Acid Yes or No Add Lactic
--- NOTE | 2023-11-10 04:06 | PC.NURSE ---
report to yrn morejon 3ms
--- NOTE | 2023-11-10 04:46 | ADMGEN ---
This patient, Maria Eugenia Solares, was admitted to [facility] Surg Room 323-02. Patient/family oriented to hospital policies and general routines including ID bracelet, bed and alarms, visiting hours, pain management, procedures, bathroom and other care routines, personal items, smoking policy, room service/diet, and visiting hours. Information on how to activate the Rapid Response Team has been discussed. Patient/Family are encouraged to report perceived risks to care and to ask questions if they do not understand what they are told or what they should do.
--- NOTE | 2023-11-10 05:41 | PM.IMHP ---
H&P: HPI History of Present Illness Date/Time: 11/10/23 05:41 Chief Complaint: Seizure Narrative: Ms. Solares is 48-year-old female with a history of seizure disorder, GERD, essential hypertension, anxiety, chronic hyponatremia. She was 1st diagnosed with seizure disorder in March 2023 at [facility]. An EEG was performed which demonstrated no significant She was discharged on Keppra 500 mg p.o. b.i.d. The patient has been in her usual state of health when on the day prior to admission on 11/09/2023 she had a witnessed seizure while working at her job at [id number]. She then fell to the floor and hit the left side of her head. She was brought to [place] ER and apparently is on Keppra 1000 mg p.o. b.i.d. now. She reports being compliant with that. She denies heavy alcohol use or drug use. She reports she has had many seizures since the last admission in March but they break on their own. She lives with her fiancee. in the ER her vital was stable. Her laboratory workup is at her baseline except for a lactic acid of 2.5. She was going to be discharged but became very anxious and said she should not leave. Neurology was consulted from the ER. patient subsequently admitted for observation. While in the ER she was doing fine until she began to have seizure-like activity but it was characterized by thrashing around and biting her lips and tongues and responding to noxious stimuli. When she was poked with a needle she said all my God. She then became quickly alert. Review of Systems Review of Systems: All systems reviewed & are unremarkable except as noted in HPI and below ( Subjective) [facility] Family History Family History Mother Acute myocardial infarction Father Diabetes mellitus Hypertension Daughter Migraine Social History Social History Smoking packs per day: 0.5 Smoking cigarettes per day: 10.0 Smoking status: Current every day smoker Alcohol intake: never Substance use: never Do You Feel Safe in your Home?: Yes Lack of Transportation: No Lack of Food: Never True Current Housing: I Have Housing Concerned About Future Housing: No Difficulty Paying Gas/Electric Bills: No Difficulty Paying for Meds: No Currently Unemployed: No Education: High School Diploma/GED Difficulty w/ Childcare or Family Care: No Spiritual care concerns: No Meds Home Medications and Allergies Home Medications Medication Instructions Recorded Confirmed Type alprazolam 0.25 mg tablet 0.25 mg PO Q8H PRN Anxiety 04/13/23 11/10/23 History metoprolol tartrate 50 mg tablet 50 mg PO HS 04/13/23 11/10/23 History metoprolol tartrate 75 mg tablet 75 mg PO QAM 04/13/23 11/10/23 History folic acid 1 ea PO DAILY 11/10/23 11/10/23 History levetiracetam 500 mg tablet 1,000 mg PO BID 11/10/23 11/10/23 History (Keppra) magnesium 1 tablet PO DAILY 11/10/23 11/10/23 History Allergies Allergy/AdvReac Type Severity Reaction Status Date / Time No Known Allergies Allergy Verified 04/12/23 23:39 Vital Signs Vital Signs - 24 hr 11/09/23 23:58 11/10/23 00:05 11/10/23 00:05 Temperature Pulse Rate 109 H 101 H Respiratory Rate 15 Blood Pressure Pulse Oximetry 100 Oxygen Delivery Room Air Room Air 11/10/23 00:06 11/10/23 00:06 11/10/23 00:30 Temperature 97.9 F Pulse Rate 111 H Respiratory Rate 17 Blood Pressure 144/90 H Pulse Oximetry 99 Oxygen Delivery Room Air 11/10/23 00:45 11/10/23 00:46 11/10/23 01:00 Temperature Pulse Rate 104 H 107 H 107 H Respiratory Rate 16 17 15 Blood Pressure 133/73 Pulse Oximetry 100 100 100 Oxygen Delivery 11/10/23 01:01 11/10/23 01:39 11/10/23 01:45 Temperature Pulse Rate 107 H 107 H 106 H Respiratory Rate 18 17 24 H Blood Pressure 146/83 H Pulse Oximetry 100 100 100 Oxygen Delivery
[2023-11-10] MEDS: MAGNESIUM OXIDE 400 MG TABLET PO (08:19)
[2023-11-10] MEDS: FOLIC ACID 1 MG TABLET PO (08:19)
[2023-11-10] MEDS: levETIRAcetam 500 MG TABLET 1000 MG PO ×2 (08:19→20:44)
[2023-11-10] MEDS: METOPROLOL TARTRATE 25 MG TABLET 75 MG PO (08:20)
[2023-11-10 08:52] LABS: Hematocrit 35.6 % (37.0-47.0); Hemoglobin 11.7 g/dL (12.0-15.0); Mean Corpuscular HGB Conc 32.9 g/dl (32-36); Mean Corpuscular Hemoglobin 34.1 pg (26-34); Mean Corpuscular Volume 103.8 fl (80-100); Mean Platelet Volume 9.9 fl (7.4-10.4); Platelet Count Result 107 k/mm3 (150-375); Red Blood Count 3.43 M/mm3 (4.2-5.4); Red Cell Distribution Width 12.5 % (11.5-14.5); White Blood Count 6.1 K/mm3 (4.5-10.0)
[2023-11-10 08:59] LABS: Anion Gap 13 mmol/L (4-12); Blood Urea Nitrogen 10 mg/dL (7-17); Calcium 9.1 mg/dL (8.4-10.2); Carbon Dioxide 25 mmol/L (22-30); Chloride 97 mmol/L (98-107); Estimated CRCL calculation 128 ml/min; Estimated Glomerular Filt Rate > 60; Glucose 90 mg/dL (65-110); Lactic Acid Reflex 0.8 mmol/L (0.7-2.0); Magnesium 1.6 mg/dL (1.6-2.3); Potassium 3.9 mmol/L (3.4-5.0); Sodium 135 mmol/L (137-145)
--- NOTE | 2023-11-10 08:59 | PM.IMPN ---
Progress Note: A&P Assessment and Plan (1) Witnessed seizure-like activity: Code(s): R56.9 - Unspecified convulsions Status: Acute Assessment and Plan: Hx of seizures, 1st diagnosed in Mar 2023. Started on 500 mg po keppra BID at that time, at time of admission patient is found to be on 1000 mg BID. Reports compliance with medications. Patient states that since that time she has been seeing Dr. Horton at [place]. She had an EEG and MRI performed last week which she was told was abnormal. Per chart review, patient had a witnessed seizure at work resulting in her hitting the left side of her head to the floor. Of note, while in the ER she was doing fine until she began to have seizure-like activity but it was characterized by thrashing around and biting her lips and tongues and responding to noxious stimuli. When she was poked with a needle she said oh my God. She then became quickly alert. - CT head without contrast without intracranial abnormality but extensive hematoma and soft tissue swelling along the high left frontal parietal scalp. 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 b.i.d.. 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 - Neurology consulted. (2) Seizures: Code(s): R56.9 - Unspecified convulsions Status: Acute Assessment and Plan: See above. (3) Hyponatremia: Code(s): E87.1 - Hypo-osmolality and hyponatremia Status: Acute Assessment and Plan: Na 130 on admission. Appears to be around baseline. Continue to monitor. (4) Anxiety: Code(s): F41.9 - Anxiety disorder, unspecified Status: Acute Assessment and Plan: Chronic, continue xanax 0.25 PRN. (5) Essential hypertension: Code(s): I10 - Essential (primary) hypertension Status: Acute Assessment and Plan: Chronic, continue home medications. - Metoprolol 75 mg in the am and 50 mg HS - monitor (6) Lactic acidosis: Code(s): E87.20 - Acidosis, unspecified Status: Acute Assessment and Plan: Lactic acidosis at 2.5 on admission likely secondary to seizure activity. She did receive fluids in the ER. Recheck lactic of 0.8. Plan Seizure and fall precautions. Up with assistance. SCDs. Full code. Awaiting Neurology consultation. Time Spent With Patient Time with patient: 25 - 35 minutes Subjective Date/time seen: 11/10/23 08:59 Interval history: Ms. Solares is 48-year-old female with a history of seizure disorder, GERD, essential hypertension, anxiety, chronic hyponatremia. She was 1st diagnosed with seizure disorder in March 2023 at [facility]. She was discharged on Keppra 500 mg BID. Patient states that since that time she has been seeing Dr. Horton at [place]. She had an EEG and MRI performed last week which she was told was abnormal. She was to increase her keppra to 1000 mg BID, she had not yet started that dose prior to this seizure. Will send a request of records to [facility]. Patient denies chest pain, shortness of breath, nausea/vomiting and changes in bowel/bladder. Review of Systems Review of Systems: All systems reviewed & are unremarkable except as noted in HPI and below Exam Narrative: AF General: female in no acute respiratory distress who is nontoxic appearing, lying semi recumbent in bed. HEENT: Normocephalic. Atraumatic. Pupils equal round reactive to light. Extraocular movement intact. Sclera clear and anicteric. No facial asymmetry. Chest: Lungs are clear to auscultation bilaterally. No wheezes or crackles. CV: Heart was regular rate and rhythm. S1-S2. No murmurs, gallops, or rubs. Abd: Abdomen was soft. Nontender. Nondistended. Positive bowel sounds. No organomegaly or masses. Ext: No clubbing, cyanosis, or edema. 2+ DP pulses bilaterally. Neuro: Patient is alert and oriented x4. Strength is 5/5 in both upper and lower extremities. Cranial nerves 2-12 are intact. Speech is clear. Psych: Normal
[2023-11-10] MEDS: ACETAMINOPHEN 325 MG TABLET 650 MG PO ×2 (10:42→20:44)
--- NOTE | 2023-11-10 14:35 | WPDNEURCNPN ---
Assessment and Plan Assessment and plan (1) Witnessed seizure-like activity: Code(s): R56.9 - Unspecified convulsions Status: Acute Plan 1. Uncontrolled seizure disorder on the dosage of Keppra only 1g per day but has been increased by her Neurology 2000mg twice a day. 2. Question were raised by her boyfriend and other family member that what is her reason to have the seizure which she has normal MRI and normal EEG there were explained that person can have a normal EEG normal MRI headache and still have the seizures the neurologist to try the anticonvulsant the proper doses which he is doing at a gradually increasing pity fun fortunately does not control the seizure then he will try the different anticonvulsant as well in the meantime we should continue considering other etiology the brain is normal severe using alcohol with her using drugs or any tranquilizers any medication can also trigger seizures so if the MRI of the brain normal he does not mean the person does not have seizures but again we have to pay attention to other etiologies also there were explained thoroughly. Patient follow with her neurologist in [place]. Consult date: 11/10/23 HPI: Marai Eugenia Solares is a 48 year old female comes to the emergency room with history of possible seizures patient has had the diagnosis of seizure disorder and has been followed by the neurologist in [facility] with history of normal MRI and normal EEG in the past and taking Keppra 1000mg twice a day which was just increased on the day of visit to the emergency room and patient has not had any increa She has history of being currently everyday smoker at least 10 cigarettes per day but no history of alcohol intakese dosage. Patient has been taking alprazolam 0.25mg Q 8hour metoprolol 50mg at night 75mg in the morning addition to omeprazole 40mg daily. Patient is not allergic to any medication. on initial exam in the emergency room she was found to have no focal neurological deficit though she was responding rather slowly, vital signs were normal blood pressure was 144/90, initial labs revealed her CBC to be normal with platelet count of 108 BMP was normal and so as the mast scan her initial CT scan of the head was negative for the bleed she has had normal MRI of the brain in March of 2023. She was witnessed by the worker at the workplace having the seizure when she fell to the floor hit her left side of her head and then brought to the ER at this particular time patient was taking 500mg of Keppra twice a day but was advised by her neurologist to increase to 1000 twice a day though unfortunately she has not taken the increased dosage she has had many seizures [place] last admission in March in the ER she was doing fairly well up until she started having seizure-like activity characterized by thrashing around biting her lips and tongue and responding to the noxious stimuli. [facility] Family History Family History Mother Acute myocardial infarction Father Diabetes mellitus Hypertension Daughter Migraine Social History Social History Smoking packs per day: 0.5 Smoking cigarettes per day: 10.0 Smoking status: Current every day smoker Alcohol intake: never Substance use: never Do You Feel Safe in your Home?: Yes Lack of Transportation: No Lack of Food: Never True Current Housing: I Have Housing Concerned About Future Housing: No Difficulty Paying Gas/Electric Bills: No Difficulty Paying for Meds: No Currently Unemployed: No Education: High School Diploma/GED Difficulty w/ Childcare or Family Care: No Spiritual care concerns: No Meds Home Medications and Allergies Home Medications Medication Instructions Recorded Confirmed Type alprazolam 0.25 mg tablet 0.25 mg PO Q8H PRN Anxiety 04/13/23 11/10/23 History metoprolol tartrate 50 mg tablet 50 mg PO H
[2023-11-10] MEDS: ALPRAZolam (*CRX) 0.25 MG TABLET PO (17:04)
[2023-11-10] MEDS: METOPROLOL TARTRATE 50 MG TAB PO (17:05)
[2023-11-11] MEDS: ALPRAZolam (*CRX) 0.25 MG TABLET PO ×2 (01:00→08:41)
[2023-11-11] MEDS: ACETAMINOPHEN 325 MG TABLET 650 MG PO (02:14)
[2023-11-11 05:35] VITALS: BP 111/69; PULSE 83; RESP 16; TEMP 36.8; O2SAT 98
[2023-11-11 08:40] VITALS: PULSE 108
[2023-11-11] MEDS: METOPROLOL TARTRATE 25 MG TABLET 75 MG PO (08:40)
[2023-11-11] MEDS: MAGNESIUM OXIDE 400 MG TABLET PO (08:40)
[2023-11-11] MEDS: levETIRAcetam 500 MG TABLET 1000 MG PO (08:40)
[2023-11-11] MEDS: FOLIC ACID 1 MG TABLET PO (08:40)
[2023-11-11] MEDS: ONDANSETRON INJ 4 MG/2 ML VIAL IV PUSH (08:55)
--- NOTE | 2023-11-11 12:00 | PM.DS ---
DS: Admitting Diagnosis Discharge Date 11/11/2023 Admitting Diagnosis witnessed seizure like activity seizures hyponatremia anxiety essential hypertension lactic acidosis DS: Discharge Diagnosis Discharge Diagnosis (1) Witnessed seizure-like activity: Code(s): R56.9 - Unspecified convulsions Status: Acute (2) Seizures: Code(s): R56.9 - Unspecified convulsions Status: Acute (3) Hyponatremia: Code(s): E87.1 - Hypo-osmolality and hyponatremia Status: Acute (4) Anxiety: Code(s): F41.9 - Anxiety disorder, unspecified Status: Acute (5) Essential hypertension: Code(s): I10 - Essential (primary) hypertension Status: Acute (6) Lactic acidosis: Code(s): E87.20 - Acidosis, unspecified Status: Acute DS: Summary Hospital Course Reason for hospitalization: witnessed seizure like activity seizures hyponatremia anxiety essential hypertension lactic acidosis Hospital Course: Ms. Solares is 48-year-old female with a history of seizure disorder, GERD, essential hypertension, anxiety, chronic hyponatremia. She was 1st diagnosed with seizure disorder in March 2023 at [facility]. She was discharged on Keppra 500 mg BID. Patient states that since that time she has been seeing Dr. Horton at [place]. She had an EEG and MRI performed last week which she was told was abnormal. She was to increase her keppra to 1000 mg BID, she had not yet started that dose prior to this seizure. Patient had a witnessed seizure at work resulting in her hitting the left side of her head to the floor and prompting her to come to the hospital. A head CT was obtained and showed no intracranial abnormality but extensive hematoma and soft tissue swelling along the high left frontal parietal scalp. Neurology was consulted and patient was placed on the 1000 mg BID dose of keppra. Neurology agreed with current treatment plan. Discussed patient with neurology, Dr. Henson. He states patient is okay for discharge at this time on her current dose of keppra 1000 mg BID. She is to follow up with her neurologist, Dr. Horton as scheduled. Per patient she has an appointment with him in mid november. Discussed with patient that until told otherwise by her neurologist she is to not drive or operate machinery for 6 months. Patient states understanding. Patient denies chest pain, shortness of breath, nausea/vomiting and abdominal pain prior to discharge. Patient discharged home in stable condition. She is to follow up with her neurologist as scheduled in November. Time Spent with Patient Time attestation: Total time spent providing and/or coordinating discharge services: Time spent: Greater than 30 minutes Exam Narrative: AF HR 83 RR 16 SpO2 98 BP 111/69 General: female in no acute respiratory distress who is nontoxic appearing, sitting up in bed. HEENT: Normocephalic. Atraumatic. Extraocular movement intact. Sclera clear and anicteric. No facial asymmetry. Chest: Lungs are clear to auscultation bilaterally. No wheezes or crackles. CV: Heart was regular rate and rhythm. S1-S2. No murmurs, gallops, or rubs. Abd: Abdomen was soft. Nontender. Nondistended. Positive bowel sounds. No organomegaly or masses. Ext: No clubbing, cyanosis, or edema. 2+ DP pulses bilaterally. DS: Data Data Completed and Pending Completed studies during hospitalization: head CT Discharge Plan Discharge Attending physician on discharge: Sina Hill Consulting providers: Venu Henson Discharging Clinician: Delores Nunes Anticipated Discharge Date/Time: 11/11/23 11:59 Patient Disposition: Home, Self-Care Activity: as tolerated Diet: as tolerated Discharge Instructions: Discharge disposition: Patient admitted to the hospital following a seizure that resulted in her hitting her head. Imaging was obtained and showed no intracranial abnormalities Patient was evaluated by neurology d
--- NOTE | 2023-11-11 12:04 | WPDNEUROPN ---
Progress Note: A&P Assessment and Plan (1) Witnessed seizure-like activity: Code(s): R56.9 - Unspecified convulsions Status: Acute (2) Seizures: Code(s): R56.9 - Unspecified convulsions Status: Acute (3) Anxiety: Code(s): F41.9 - Anxiety disorder, unspecified Status: Acute Plan For now I would suggest to continue the Keppra 1000 mg 30 has had MRI ass. She follows used she should be advised to defer driving for 6 months after the last seizure. Subjective Date/time seen: 11/11/23 12:04 Interval history: the patient is 48 years old with history of seizure disorder which started earlier this year. She follows with a neurologist in [place] Dr. Mahin barnard. She has had 2 seizures and brought to the hospital. The dose of Keppra has been increased to 1000 mg twice a day. Previous MRI and EEG were normal. The patient works in [employer] and this apparently 2 of the spells occurred while at work. Her records were reviewed. Review of Systems Review of Systems: All systems reviewed & are unremarkable except as noted in HPI and below Exam Const: General: cooperative, well developed and alert Orientation/consciousness: patient oriented x3 HENMT: Head: atraumatic Mouth: Yes oropharynx normal Eyes: Alignment and Position: position normal Pupils: Equal, round and reactive pupils present EOM: EOMs intact bilaterally Neck: Neck: supple Resp: Effort & Inspection: normal respiratory effort Auscultation: clear to auscultation bilaterally Neuro: General: patient oriented x3 Cranial nerves: Yes CN's II-XII intact bilaterally, Yes facial sensation intact/muscles of mastication intact, Yes Equal, round and reactive pupils present, Yes facial symmetry and Yes Midline tongue present Cognition (Neuro): normal cognition Speech: normal speech Gait exam (Neuro): Normal gait present Motor exam (neuro): 5/5 motor strength present throughout Sensory Exam: normal sensation Coordination: [id number] test normal and Normal rapid alternating movements of the distal upper extremity present (Neuro) Objective Data Vital Signs Vital Signs: Vital Signs - 24 hr 11/10/23 13:55 11/10/23 17:05 11/10/23 21:06 Temperature 98.0 F 99.3 F Pulse Rate 80 84 80 Respiratory Rate 16 18 Blood Pressure 116/78 115/78 Pulse Oximetry 99 100 Oxygen Delivery 11/10/23 20:00 11/11/23 05:35 11/11/23 08:40 Temperature 98.3 F Pulse Rate 83 108 H Respiratory Rate 16 Blood Pressure 111/69 Pulse Oximetry 98 Oxygen Delivery Room Air 11/11/23 08:00 Temperature Pulse Rate Respiratory Rate Blood Pressure Pulse Oximetry Oxygen Delivery Room Air Intake/Output Intake/Output: Intake & Output 11/08/23 11/09/23 11/10/23 11/11/23 23:59 23:59 23:59 23:59 Intake Total 2370 368 Balance 2370 368 Meds/Results Medications: Active Medications Generic Name Dose Route Start Last Admin Trade Name Freq PRN Reason Stop Dose Admin Acetaminophen 650 mg 11/10/23 10:37 11/11/23 02:14 Acetaminophen 325 Mg Tablet PO 650 mg Q6H PRN Administration Mild Pain (1-3) or Fever Alprazolam 0.25 mg 11/10/23 05:39 11/11/23 08:41 Alprazolam (*Crx) 0.25 Mg Tablet PO 0.25 mg Q8H PRN Administration Anxiety Folic Acid 1 mg 11/10/23 09:00 11/11/23 08:40 Folic Acid 1 Mg Tablet PO 1 mg QAM MARBELLA Administration Levetiracetam 1,000 mg 11/10/23 09:00 11/11/23 08:40 Levetiracetam 500 Mg Tablet PO 1,000 mg Q12HR MARBELLA Administration Magnesium Oxide 400 mg 11/10/23 09:00 11/11/23 08:40 Magnesium Oxide 400 Mg Tablet PO 400 mg DAILY MARBELLA Administration Metoprolol Tartrate 75 mg 11/10/23 09:00 11/11/23 08:40 Metoprolol Tartrate 25 Mg Tablet PO 75 mg QAM MARBELLA Administration Metoprolol Tartrate 50 mg 11/10/23 17:00 11/10/23 17:05 Metoprolol Tartrate 50 Mg Tab PO 50 mg DAILY@1700 MARBELLA Administration Ondansetron HCl 4 mg 11/11/23 0
== END 2023-11-11 13:05 | disposition home or self-care (01) ==
LOC: ANHED 02:42 → ANH3MEDSUR 04:53
PROVIDERS: Admitting Provider General Practice; Emergency Provider Emergency Medicine; Visit Provider Student in an Organized Health Care Education/Training Program
DX: R56.9 Unspecified convulsions (principal); E87.1 Hypo-osmolality and hyponatremia; E87.20 Acidosis, unspecified; I10 Essential (primary) hypertension; K21.9 Gastro-esophageal reflux disease without esophagitis; F41.9 Anxiety disorder, unspecified; F17.210 Nicotine dependence, cigarettes, uncomplicated
CPT/HCPCS: 36415; 70450; 80048; 80053; 83605; 83735; 85025; 85027; 93005; 96365; 96366; 96375; 99285; A9270; G0378; J1953; J2060; J2405; J7120